=== PATIENT | male | born 1990 | race Caucasian/White ===

== ENCOUNTER 2025-04-09 11:36 | Inpatient (IN) | payer SELFPAY ==
[2025-04-09] MEDS ORDERED: DIAZEPAM 5 MG TABLET ONE (12:04)
--- NOTE | 2025-04-09 12:17 | RAD REPORT ---
EXAM: XR Abdomen Single View HISTORY: HS MAIN Foreign Body In Rectum - Bottle Bed Name: 20 COMPARISON: None FINDINGS: Single view of the abdomen shows a nonspecific, nonobstructive bowel gas pattern. Moderate stool burden along the ascending colon. No suspicious calcifications are seen. Tubular lucency in the pelvis, could represent a foreign body. The bones are unremarkable. IMPRESSION: Tubular lucency in the pelvis, could represent an air-filled for the body. Moderate stool burden of the ascending colon.
[2025-04-09 12:39] LABS: Absolute Lymphocytes (CBC) 2.4 K/uL (0.7-4.9); Hematocrit 43.0 % (39.6-49.0); Hemoglobin 14.5 g/dL (13.6-17.9); MCH 30.5 pg (27.0-35.0); MCHC 33.8 g/dL (32.0-36.0); MCV 90.1 fL (80-100); MPV 8.1 fL (7.6-11.3); Nucleated RBC Absolute Count 0.0 (0-0); Nucleated Red Blood Cells % 0.0 % (0-0); RBC Red Blood Cell Count 4.77 M/uL (4.33-5.43); White Blood Count 8.30 thou/uL (4.3-10.9)
[2025-04-09 12:43] LABS: PT Prothrombin Time 12.1 SECONDS (10-13.0); Protime INR 1.07
[2025-04-09 12:54] LABS: ALT/SGPT 36 U/L (16-61); Albumin 4.0 g/dL (3.4-5.0); Albumin/Globulin Ratio 1.5 (1.1-1.8); Alkaline Phosphatase 49 U/L (45-117); Anion Gap 10.6 mEq/L (5.0-15.0); BUN Blood Urea Nitrogen 11 mg/dL (7-18); Globulin 2.7 g/dL (2.3-3.5); Glucose Level 114 mg/dL (74-106); Potassium 3.6 mEq/L (3.5-5.1)
[2025-04-09 13:03] LABS: AST/SGOT < 10 U/L (15-37)
--- NOTE | 2025-04-09 13:08 | ER ---
Nurse's Notes [facility] Name: Heriberto Figueredo Age: 35 yrs Sex: Male : 1990 Arrival Date: 04/09/2025 Time: 11:36 Bed 20 Private MD: Diagnosis: Foreign body in anus and rectum Presentation: 04/09 11:40 Chief complaint: Patient states: I have small bottle up my ass, I tried to poop it out jb4 and it did not come out. Coronavirus screen: At this time, the client does not indicate any symptoms associated with coronavirus-19. Ebola Screen: No symptoms or risks identified at this time. Risk Assessment: Do you want to hurt yourself or someone else? Patient reports no desire to harm self or others. Onset of symptoms was April 09, 2025. Transition of care: patient was not received from another setting of care. 11:40 Method Of Arrival: Ambulatory jb4 11:40 Method Of Arrival: Ambulatory jb4 11:40 Acuity: RERE 3 jb4 11:49 Initial Sepsis Screen: Does the patient meet any 2 criteria? No. Patient's initial jb4 sepsis screen is negative. Does the patient have a suspected source of infection? No. Patient's initial sepsis screen is negative. Historical: - Allergies: 11:41 No Known Allergies; jb4 - PMHx: 11:41 Schizophrenia; jb4 - PSHx: 11:41 Appendectomy; jb4 - Immunization history:: Adult Immunizations not up to date. - Infectious Disease History:: Denies. - Social history:: Smoking status: Patient denies any tobacco usage or history of. Screenin:44 [facility] ED Fall Risk Assessment (Adult) History of falling in the last 3 months, jp5 including since admission No falls in past 3 months (0 pts) Confusion or Disorientation No (0 pts) Intoxicated or Sedated No (0 pts) Impaired Gait No (0 pts) Mobility Assist Device Used No (0 pt) Altered Elimination No (0 pt) Score/Fall Risk Level 0 - 2 = Low Risk Oriented to surroundings, Maintained a safe environment, Educated pt \T\ family on fall prevention, incl call for assistance when getting out of bed, Assessed \T\ reinforced patient's understanding of fall precautions, Provided non-skid footwear, Hourly rounding (assess needs \T\ fall precautionary measures) done, Used ambulatory aids as needed (educated on \T\ assisted with), Used gait belt as appropriate. Abuse screen: Denies threats or abuse. Denies injuries from another. Nutritional screening: No deficits noted. Tuberculosis screening: No symptoms or risk factors identified. Assessment: 11:44 General: Appears in no apparent distress. Behavior is calm, cooperative. Pain: Denies 5 pain. GI: pt states he has a body of lotion stuck in his rectum. 12:45 Reassessment: Patient appears in no apparent distress at this time. Patient and/or 5 family updated on plan of care and expected duration. Pain level reassessed. Patient is alert, oriented x 3, equal unlabored respirations, skin warm/dry/pink. 13:45 Reassessment: Patient appears in no apparent distress at this time. No changes from jp5 previously documented assessment. Patient and/or family updated on plan of care and expected duration. Pain level reassessed. Patient is alert, oriented x 3, equal unlabored respirations, skin warm/dry/pink. Vital Signs: 11:49 BP 130 / 96; Pulse 86; Resp 16; Temp 96.9(TE); Pulse Ox 99% on R/A; Weight 92.99 kg jb4 (R); Height 5 ft. 11 in. (R); 13:00 BP 117 / 81; Pulse 70; Resp 16; Temp 97.4; Pulse Ox 97% ; Pain 2/10; pm7 14:00 BP 116 / 75; Pulse 70; Resp 18; Temp 97(O); Pulse Ox 97% on R/A; Pain 0/10; jp5 11:49 Body Mass Index 28.59 (92.99 kg, 180.34 cm) jb4 13:00 Pain Scale: Adult pm7 14:00 Pain Scale: Adult jp5 ED Course: 11:39 Patient arrived in ED. ts1 11:39 [facility] dr5 11:39 Brian Peters MD is Attending Physician. dr5 11:41 Triage completed. jb4 11:41 Arm band placed on right wrist. jb4 11:44 Jena Mason, RN is Primary Nurse. jp5 11:44 No provider procedures requiring assistance completed. jp5 11:45 Patient has correct armband on for positive identification. Placed in gown. Bed in low jp5 position. Call light in reach. Side rails up X 1. Provided Education on: call light use. 12:09 XRAY Abdomen 1 View In Process Unspecified. EDMS 12:10 Assisted provider with: ED provider attempted to remove foreign body from pt's rectum, jp5 unable to do so. Pt tolerated well. 12:33 CT Abd/Pelvis - Without Contrast In Process Unspecified. EDMS 12:41 Inserted saline lock: 20 gauge in right hand, using aseptic technique. Blood collected. pm7 Flushed with 10 mL NS. 13:06 Bennie Bryan MD is Hospitalizing Provider. dr5 14:26 Report given to SBAR and yellow sheet faxed and tubed to 2nd floor. CHAGO Vargas confirmed jp5 received. Administered Medications: 12:05 Drug: Diazepam PO 5 mg PO once Route: PO; jp5 Medication: 11:44 VIS not applicable for this client. jp5 Outcome: 13:07 Decision to Hospitalize by Provider. dr5 15:00 Admitted to Med/surg accompanied by [facility], room 207, with chart, jp5 15:00 Condition: stable 15:00 Instructed on the need for admit, Demonstrated understanding of instructions, 15:01 Patient left the ED. jp5 Signatures: Dispatcher [employer] EDMS Harlan Alejandra, RN RN jb4 Marylu Bedoya PAS PAS ts1 Jena Mason RN RN jp5 Devan Souza, APPRENTICE EMBALMER-C APPRENTICE EMBALMER-Cdr5 Ting Ellis pm7 Corrections: (The following items were deleted from the chart) 14:23 14:00 BP 116 / 75; Pulse 70bpm; Resp 18bpm; Pulse Ox 97% RA; Pain 0/10, Adult; jp5 jp5
--- NOTE | 2025-04-09 13:08 | EDPHYS ---
Physician Documentation [facility] Name: Heriberto Figueredo Age: 35 yrs Sex: Male : 1990 Arrival Date: 04/09/2025 Time: 11:36 Bed 20 Private MD: ED Physician Brian Peters HPI: 04/09 11:52 This 35 yrs old Male presents to ER via Ambulatory with complaints of Foreign dr5 Body. 11:52 The patient or guardian reports the patient has a suspected foreign body, of the dr5 rectum. The reported likely foreign body is Plastic Bottle. Onset: The symptoms/episode began/occurred yesterday. Patient is a 35 year old male with hx of schizophrenia coming in with foreign body that's been going on since last night. Patient reports he uses bottles for rectal pleasure and used a plastic bottle last night he was unable to remove from his rectum. Patient denies abdominal pain, nausea, vomiting or diarrhea. Patient states that he is able to feel it with his fingers but unable to remove it.. Historical: - Allergies: 11:41 No Known Allergies; jb4 - PMHx: 11:41 Schizophrenia; jb4 - PSHx: 11:41 Appendectomy; jb4 - Immunization history:: Adult Immunizations not up to date. - Infectious Disease History:: Denies. - Social history:: Smoking status: Patient denies any tobacco usage or history of. ROS: 11:52 Constitutional: as per hpi dr5 Exam: 11:52 Constitutional: This is a well developed, well nourished patient who is awake, alert, dr5 and in no acute distress. Head/Face: Normocephalic, atraumatic. Eyes: Pupils equal round and reactive to light, extra-ocular motions intact. Lids and lashes normal. Conjunctiva and sclera are non-icteric and not injected. Cornea within normal limits. Periorbital areas with no swelling, redness, or edema. ENT: Nares patent. No nasal discharge, no septal abnormalities noted. Tympanic membranes are normal and external auditory canals are clear. Oropharynx with no redness, swelling, or masses, exudates, or evidence of obstruction, uvula midline. Mucous membranes moist. Chest/axilla: Normal chest wall appearance and motion. Nontender with no deformity. No lesions are appreciated. Cardiovascular: Regular rate and rhythm with a normal S1 and S2. Normal PMI, no JVD. No pulse deficits. Respiratory: Lungs have equal breath sounds bilaterally, clear to auscultation. No rales, rhonchi or wheezes noted. No increased work of breathing, no retractions or nasal flaring. Abdomen/GI: Soft, non-tender, non-distended Back: No spinal tenderness. No costovertebral tenderness. Full range of motion. Skin: Warm, dry with normal turgor. Normal color with no rashes, no lesions, and no evidence of cellulitis. MS/ Extremity: Pulses equal, no cyanosis. Neurovascular intact. Full, normal range of motion. Neuro: Awake and alert, GCS 15, oriented to person, place, time, and situation. Cranial nerves II-XII grossly intact. Motor strength 5/5 in all extremities. Sensory grossly intact. Cerebellar exam normal. Normal gait. 12:22 : Rectal exam: is normal, Rectal tone: normal, Perineal sensation Normal CHAGO Mason. dr5 Unable to feel foreign body during rectal exam., Vital Signs: 11:49 BP 130 / 96; Pulse 86; Resp 16; Temp 96.9(TE); Pulse Ox 99% on R/A; Weight 92.99 kg jb4 (R); Height 5 ft. 11 in. (R); 13:00 BP 117 / 81; Pulse 70; Resp 16; Temp 97.4; Pulse Ox 97% ; Pain 2/10; pm7 14:00 BP 116 / 75; Pulse 70; Resp 18; Temp 97(O); Pulse Ox 97% on R/A; Pain 0/10; jp5 11:49 Body Mass Index 28.59 (92.99 kg, 180.34 cm) jb4 13:00 Pain Scale: Adult pm7 14:00 Pain Scale: Adult jp5 MDM: 11:39 Medical Screening Exam initiated dr5 14:38 Data reviewed: vital signs, nurses notes, lab test result(s), CBC, white blood cell dr5 count, hemoglobin, hematocrit, platelets, electrolytes, sodium, potassium, chloride, serum bicarbonate, BUN, creatinine, serum glucose, PT/INR, EKG, radiologic studies, CT scan, plain films. Consideration of Admission/Observation Patient was admitted/placed on observation. Management of patient was discussed with the following: Hospitalist: Dr. Bryan. Electric Stop Installer: Dr. Cash - MYLESO, Abx, and admit for surgery tomorrow. I considered the following discharge prescriptions or medication management in the emergency department I discussed and recommended Over The Counter medications, Medications were administered in the Emergency Department. See MAR. Independent interpretation of the following test(s) in the Emergency Department X-Ray: My interpretation is Foreign body noted in rectum. CT Scan: My interpretation is Independent interpretation CAT scan reveals bottle like image in lower intestine. Care significantly affected by the following chronic conditions: Schizophrenia. Care significantly affected by the following Social Determinants of Health: Poor access to healthcare and/or lack of insurance, Poor access to transportation, Problems related to employment. Counseling: I had a detailed discussion with the patient and/or guardian regarding the historical points, exam findings, and any diagnostic results supporting the discharge/admit diagnosis, the presence of at least one elevated blood pressure reading (>120/80) during this emergency department visit, lab results, radiology results, the need for further work-up and treatment in the hospital. Special discussion: Based on the patient's history, exam and DX evaluation, there is no indication for emergent intervention or inpatient TX. It is understood by the patient/guardian that if the SXs persist or worsen they need to return immediately for re-evaluation. ED course: Dr. Cash is consulted and will do surgery by morning. Patient is aware of plan and is agreeable to plan.. 04/09 12:18 Order name: CBC with Diff; Complete Time: 12:44 04/09 12:18 Order name: CMP; Complete Time: 13:05 04/09 12:18 Order name: Type And Screen; Complete Time: 13:53 dr5 04/09 12:18 Order name: PT-INR; Complete Time: 12:44 04/09 13:43 Order name: ABO/RH no charge; Complete Time: 13:53 EDDC 04/09 13:49 Order name: Basic Metabolic Panel EDDC 04/09 13:49 Order name: Basic Metabolic Panel EDDC 04/09 13:49 Order name: CBC with Automated Diff EDMS 04/09 13:49 Order name: CBC with Automated Diff EDDC 04/09 13:49 Order name: Protime (+INR) EDDC 04/09 13:49 Order name: Protime (+INR) EDDC 04/09 11:49 Order name: XRAY Abdomen 1 View; Complete Time: 12:18 dr5 04/09 12:18 Order name: CT Abd/Pelvis - Without Contrast; Complete Time: 13:31 dr5 04/09 13:45 Order name: CONS Physician Consult EDDC 04/09 13:54 Order name: EKG; Complete Time: 13:54 dr5 04/09 12:34 Order name: Labs - recollect needed: recollect T\T\S / not labeled correctly; Complete eb Time: 12:52 04/09 13:54 Order name: EKG - Nurse/Tech; Complete Time: 14:43 dr5 EC:02 Rate is 66 beats/min. Rhythm is regular. QRS [place] is Normal. [place] interval is normal at dr5 154 msec. QRS interval is normal at 94 msec. QT interval is normal at 418 msec. Clinical impression: Normal ECG and No evidence of ischemia. Administered Medications: 12:05 Drug: Diazepam PO 5 mg PO once Route: PO; jp5 Disposition Summary: 04/09/25 13:07 Hospitalization Ordered Notes: Hospitalization Status: Inpatient Admission dr5 Provider: Bennie Bryan dr5 Location: Telemetry/MedSurg (Inpatient) dr5 Condition: Stable dr5 Problem: new dr5 Symptoms: have worsened dr5 Bed/Room Type: Standard dr5 Room Assignment: 207(04/09/25 13:59) ll1 Diagnosis - Foreign body in anus and rectum dr5 Forms: - Medication Reconciliation Form dr5 - SBAR form dr5 - Leadership Thank You Letter dr5 Signatures: Dispatcher [employer] EDMS Harlan Alejandra RN RN jb4 Beata Mar Lynsay RN RN ll1 Jena Mason RN RN jp5 Devan Souza, EJ-C [employer] CLEANER HAND-Cdr5 Corrections: (The following items were deleted from the chart) 11:49 11:49 Abdomen 1 View+RAD.RAD.BRZ ordered. EDDC EDDC 13:59 13:07 dr5 ll1
--- NOTE | 2025-04-09 13:25 | RAD REPORT ---
EXAMINATION: CT Abdomen Pelvis Wo Contrast CLINICAL INDICATION: Male, 35 years old. Foreign Bottle - Rectal TECHNIQUE: CT abdomen and pelvis was performed, without IV contrast, as per department protocol. Axia l, sagittal and coronal reconstructions were obtained. One or more of the following dose reduction techniques were used: Automated exposure control, adjustment of the mA and kV according to the patien t size, and iterative reconstruction. Unless otherwise specified, incidental findings do not require dedicated imaging follow-up. COMPARISON: No prior exam. FINDINGS: The lack of intravenous contrast limits the sensitivity of this exam for evaluation of solid visceral organs, vascular structures, and retroperitoneum. LOWER CHEST: The visualized lung bases are clear. LIVER: Normal in size and contour. No focal lesion. BILIARY SYSTEM: No suspicious abnormalities. SPLEEN: Normal size. No focal lesion. PANCREAS: No mass, ductal dilation, or hilaria-pancreatic fluid. ADRENALS: Normal; no mass. KIDNEYS AND URETERS: Normal size and contour. No hydronephrosis. URINARY BLADDER: Normal contour. GASTROINTESTINAL TRACT: Tubular lucent structure compatible with reported bottle present within the l umen of the upper rectum and distal sigmoid. The nozzle is lodged against the posterior rectal wall, with mild wall thickening and adjacent presacral fat stranding in the region. No evidence of donna wel obstruction, significant free fluid, free air or abscess. APPENDIX: Appendix not visualized, but no inflammatory changes in region of appendix. LYMPH NODES: No lymphadenopathy. MUSCULOSKELETAL: No acute or suspicious osseous abnormality. ADDITIONAL FINDINGS: None. IMPRESSION: Tubular lucent structure compatible with reported bottle present within the lumen of the upper rectum and distal sigmoid. Focal posterior rectal wall thickening and mild presacral fat stranding at the level of the nozzle. No evidence of free air or free fluid.
[2025-04-09] MEDS ORDERED: ACETAMINOPHEN 325 MG TABLET PO PRN (13:43)
[2025-04-09] MEDS: NA CHLORIDE 0.9% 1,000 ML IV SCH (14:00)
--- NOTE | 2025-04-09 14:01 | P.HP ---
Certification for Inpatient Patient admitted to: Inpatient With expected LOS: >2 Midnights Patient will require the following post-hospital care: None Practitioner: I am a practitioner with admitting privileges, knowledge of patient current condition, hospital course, and medical plan of care. Services: Services provided to patient in accordance with Admission requirements found in Title 42 Section 412.3 of the Code of Federal Regulations Patient History Date of Service: 04/09/25 Primary Care Provider: None Reason for admission: Rectal foreign body History of Present Illness: 35-year-old male with prior medical history of unmedicated schizophrenia presents to the ED with complaints of having "a bottle in my ass" since 1 night prior. He reports placing the bottle there himself and does this frequently and he has always come out before. Denies bleeding from the site, endorses pain with movement that is improved with laying down on his side. Endorses attempting bowel movement to remove the object at home unsuccessfully. ER course Patient arrived to ED via personal vehicle. Upon arrival an x-ray of the abdomen was taken confirming foreign body. ED provider attempted removal of the foreign body from the patient's rectum unsuccessfully. Subsequently, CT of the abdomen/pelvis with out contrast was completed. Patient was given diazepam p.o. 5 mg once for comfort. Vital signs jesus none en and within normal limits on room air. Allergies No Known Allergies Allergy (Unverified 04/09/25 13:56) Home medications list reviewed: Yes Home Medications: NK [No Home Meds] 04/09/25 - Past Medical/Surgical History Has patient received pneumonia vaccine in the past: No Diabetic: No -: Schizophrenia -: Appendectomy - Family History Family History: Reviewed- Non-Contributory - Social History Smoking Status: Never smoker Alcohol use: No CD- Drugs: No Caffeine use: Yes Place of Residence: Home Review of Systems 10-point ROS is otherwise unremarkable Physical Examination - Physical Exam General: Alert, In no apparent distress, Oriented x3, Cooperative HEENT: Atraumatic, Normocephalic, Mucous membr. moist/pink Neck: Supple, JVD not distended Respiratory: Clear to auscultation bilaterally, Normal air movement Cardiovascular: No edema, Normal pulses, Regular rate/rhythm, Normal S1 S2 Capillary refill: Brisk Gastrointestinal: Normal bowel sounds, Soft and benign, Non-distended Musculoskeletal: No clubbing, No swelling, No contractures, No erythema Integumentary: No rashes, No breakdown, No significant lesion, No tenderness/swelling Neurological: Normal speech, Normal strength at 5/5 x4 extr, Normal tone, Sensation intact, Cranial nerves 3-12 intact, Normal affect External genitalia: Deferred Rectal: Tenderness - Studies Laboratory Data (last 24 hrs) 04/09/25 04/09/25 04/09/25 12:24 12:24 12:24 WBC 8.30 Hgb 14.5 Hct 43.0 Plt Count 273 PT 12.1 INR 1.07 Sodium 142 Potassium 3.6 BUN 11 Creatinine 0.99 Glucose 114 H Total Bilirubin 0.4 AST < 10 L ALT 36 Alkaline Phosphatase 49 Assessment and Plan - Plan Assessment: 35-year-old male with prior medical history of unmedicated schizophrenia presents to the ED with complaints of having "a bottle in my ass" since 1 night prior. He reports placing the bottle there himself and does this frequently and he has always come out before. Plan: Rectal foreign body Rectal pain Self-inflicted Abdominal x-ray 04/09 showed moderate stool burden and tubular lucency CTAP 04/09 showing similar tubular lucent structure without evidence of free air or fluid Surgery consulted, anticipate OR in the a.m. with Dr. Cash N.p.o. Anticoagulation held pending procedure Tylenol 650 mg every 4 hours as needed for mild pain Morphine 4 mg IV every 4 hours as needed for moderate to severe pain Schizophrenia Endorses being prescribed medications, but not taking them Mom has recommended medication list and will bring Disposition: DVT prophylaxis: Held pending surgery GI prophylaxis: Not indicated. Diet: N.p.o. pending anticipated OR 04/[address] Cash Code Status: DNR - Advance Directives Does patient have a Living Will: Yes Does patient have a Durable POA for Healthcare: No - Code Status/Comfort Care Code Status Assessed: Yes (DNR) Critical Care: No Time Spent Managing Pts Care (In Minutes): 49
[2025-04-09] MEDS: SUGAMMADEX SODIUM 200 MG/2 ML VIAL IV ONE (15:28)
[2025-04-09] MEDS: SUCCINYLCHOLINE 20 MG/ML (10 ML) IV ONE (15:29)
[2025-04-09 15:32] VITALS: BMI 28.5
[2025-04-09] MEDS ORDERED: MORPHINE 4 MG/ML SYR IV PRN (15:39)
[2025-04-09] MEDS ORDERED: LIDOCAINE 2% MPF 5 ML VIAL ONE (15:41)
[2025-04-09] MEDS ORDERED: ROCURONIUM 50 MG/5 ML VIAL IV ONE (15:41)
[2025-04-09] MEDS ORDERED: FENTANYL CITR 100 MCG/2 ML ONE (15:42)
[2025-04-09] MEDS: CIPROFLOXACIN 400mg IV 400 MG/200 ML BAG IV ONE (16:09)
[2025-04-09] MEDS: Ringers Lactate 1,000 ML IV ONE (16:12)
--- NOTE | 2025-04-09 17:49 | P.BOP ---
Preoperative diagnosis: retained foreign body Postoperative diagnosis: same plus colitis Primary procedure: EUA, flexible sigmoidoscopy, removal of plastic bottle foreign body Estimated blood loss: 0 Specimen: bottle Findings: bottle rectosigmoid area, colitis Anesthesia: General Complications: None Transferred to: Recovery Room Condition: Good
--- NOTE | 2025-04-09 19:59 | CON ---
Date of Consultation: 04/09/2025 Reason For Service: Retained foreign body in the rectum. History Of Present Illness: This is a case of a 35-year-old patient with a medical history other can n schizophrenia, comes to the ER complaining of "I put a bottle on my ass." Happened last night. He had done it before, but it comes out. He is saying the bottle has no cap and is a plastic. He was trying to remove that himself, but could not, ER can even feel it at physical exam on the rectal exam ination and the x-ray shows deep into the rectosigmoid area. He had this morning some for diet at 7 o'clock in the morning. He is complaining of abdominal pain and that is why he came to [facility] ER since he could not do anything else. Medical History: Schizophrenia. Past Surgical History: Surgeries include appendectomy. Allergies: NONE. Medications: None. Social History: He does not smoke. He does not drink alcohol. Review of Systems: As per the HPI. No dysuria, hematuria, hematochezia, melena. No fever. No shortness of breath. No chest pain. Physical Examination: General: The patient is awake, alert, oriented x3. Cooperative. HEENT: Pupils are equal and reactive. Anicteric. Neck: Supple. Chest: Clear. Abdomen: Soft and depressible. There is lower abdominal mild pain without tenderness and no rebound . Rectal: Deferred. He is already sore from his attempt in ER, but they cannot be reached. Extremities: Good capillary refill. Laboratory Data: Blood work shows WBC count of 8.3, hemoglobin of 14.5, and platelets 273. Chloride is 110. Abdomen CT interpreted by within the lumen of the upper rectum and sigmoid a jarett, then also dislodged against the posterior rectal wall, male wall thickening, adjacent perisacral fat stranding in the region. Assessment: This is a 35-year-old patient with a retained foreign body deep into the sigmoid to rect al area, cannot even be reached through the rectal exam. After multiple attempts in ER by the ER nelson britt and the patient itself, so they called the surgeon for also trying to remove this under anesth esia. Explained to him the benefits, alternatives, and risks of an examination under anesthesia, ano scopy, proctoscopy, possible removal of foreign body, possible exploratory laparotomy with midline in cision, possible bowel resection, possible ostomy with benefits, alternatives, and risks including, b ut not limited to infection, bleeding, damage to adjacent structures anesthesia complication, bowel p erforation, abscess, [place], and even . He also understands this may not relieve symptoms. He migh t need more than one surgical intervention given that the plan is the reverse ostomy if present in e next few months, still it is a possibility that might never happen, so he understands that and sign ed a consent. The OR was emergently called. IKER/NEVAEH Voice ID: [id number] Report ID: [id number]
[2025-04-09] MEDS: Ciprofloxacin 200mg IV 200 MG/100 ML IV.SOLN. IV SCH (20:05)
[2025-04-09] MEDS: HYDROCODONE/APAP 5/325 MG TAB PO PRN (20:06)
--- NOTE | 2025-04-09 20:08 | OP ---
Date of Procedure: 04/09/2025 Surgeon: Orville Cash MD Preoperative Diagnoses: Retained foreign body, colitis, abdominal pain. Postoperative Diagnoses: Retained foreign body, colitis, abdominal pain. Procedures: Examination under anesthesia, flexible sigmoidoscopy, removal of plastic bottle foreign body. Estimated Blood Loss: None. Specimens: Plastic bottle. Findings: Bottle in the rectosigmoid area, contact colitis. Anesthesia: General. Complications: None. Indications: This is the case of a 35-year-old patient who last night put a plastic bottle in his re ctum. He lost control over it. He could not retrieve that. Today this afternoon, he decided to com e to the ER because it was not coming down and it was giving him pain and discomfort. He was examine d and fully explained the benefits and risks of examination under anesthesia, possible anoscopy, proc toscopy, possible colonoscopy, possible laparotomy, possible bowel resection, possible ostomy with be nefits, alternatives, and risks including, but not limited to infection, bleeding, damage to adjacent structures, anesthesia complication, recurrence, bowel perforation, colitis, [place], and even . He also understands this may not relieve symptoms. He might need more than one surgical intervention. He signed a consent. Description Of Procedure: The patient was brought to the operating room, placed in supine position. Anesthesia was induced without complication. The abdomen and genitalia were prepped and draped in a sterile fashion. The patient was placed in lithotomy position. A time-out was called. We have thi s planned. We have the anoscopies. We have also a major set in case we have to do laparotomy, but w e tried first the colonoscopy, flexible sigmoidoscopy. The colonoscope we introduced after rectal ex amination was done in the area of the rectum and at the rectosigmoid junction, we were able to identi fy a foreign object with the shape of a plastic bottle. There was no cap the cap was not there pre or prior to surgery that allowed me to put a loop around the neck of that loop a nd then with the help of the scope pulling carefully we were able to retrieve the foreign body. Afte r that, we introduced the camera, once again checked the area. It shows some contact colitis, but no perforation and no ischemia. We went proximal to the area where the foreign body was. At that mome nt, I proceeded to scope. Sponge count and instrument counts were correct. The patient tolerated th e procedure well. Bottle was sent for specimen, and the patient was sent to Recovery in stable condi tion. IKER/NEVAEH Voice ID: [id number] Report ID: [id number]
[2025-04-09 21:20] VITALS: O2SAT 97
[2025-04-10 05:33] LABS: Absolute Lymphocytes (CBC) 3.7 K/uL (0.7-4.9); Hematocrit 38.9 % (39.6-49.0); Hemoglobin 13.1 g/dL (13.6-17.9); MCH 30.3 pg (27.0-35.0); MCHC 33.6 g/dL (32.0-36.0); MCV 90.1 fL (80-100); MPV 7.9 fL (7.6-11.3); Nucleated RBC Absolute Count 0.0 (0-0); Nucleated Red Blood Cells % 0.0 % (0-0); RBC Red Blood Cell Count 4.32 M/uL (4.33-5.43); White Blood Count 8.40 thou/uL (4.3-10.9)
[2025-04-10 05:34] LABS: PT Prothrombin Time 12.6 SECONDS (10-13.0); Protime INR 1.12
[2025-04-10 05:40] LABS: Anion Gap 8.0 mEq/L (5.0-15.0); BUN Blood Urea Nitrogen 7.0 mg/dL (7-18); Glucose Level 97.0 mg/dL (74-106); Potassium 4.0 mEq/L (3.5-5.1)
[2025-04-10 08:04] VITALS: BP 91/52; TEMP 98
--- NOTE | 2025-04-10 08:36 | P.DS ---
Admission Date: 04/09/25 Discharge Date: 04/10/25 Primary Care Provider: None Disposition: ROUTINE DISCHARGE Discharge Condition: GOOD Reason for Admission: Rectal foreign body Consultations: SurgeryDr. Cash Procedures: Rectal foreign body removal in OR 04/09/2025 Brief History of Present Illness: 35-year-old male with prior medical history of unmedicated schizophrenia presents to the ED with complaints of having "a bottle in my ass" since 1 night prior. He reports placing the bottle there himself and does this frequently and he has always come out before. Denies bleeding from the site, endorses pain with movement that is improved with laying down on his side. Endorses attempting bowel movement to remove the object at home unsuccessfully. ER course Patient arrived to ED via personal vehicle. Upon arrival an x-ray of the abdomen was taken confirming foreign body. ED provider attempted removal of the foreign body from the patient's rectum unsuccessfully. Subsequently, CT of the abdomen/pelvis with out contrast was completed. Patient was given diazepam p.o. 5 mg once for comfort. Vital signs jesus none en and within normal limits on room air. Hospital Course: Patient was admitted for removal of rectal foreign body and subsequent rectal pain management after introducing a foreign body to his rectum intentionally. Patient initially underwent abdominal x-ray which showed moderate stool burden and tubular lucency. Follow-up CTAP was completed on 04/09 confirming tubular lucency in size without evidence of free air or free fluid in the surrounding area. Surgery was consulted due to failed attempts to remove the foreign object in the ED by the ED providers. Dr. Cash 6 patient to the OR for surgical removal without complication. Mild colitis was noticed post removal to the surrounding area, but no perforation or infectious concerns were noted in the operative report. Patient was maintained on Tylenol and [place] for pain relief. On day of discharge patient denies pain. Advised to take [id number] Tylenol or ibuprofen for pain and inflammation control. Also recommended taking stool softener like MiraLAX to avoid aggravating the area while it is healing. Additionally, reinforced importance of taking medication as prescribed for schizophrenia as patient states he does not like taking his medications. Vital Signs/Physical Exam: Temp Pulse Resp BP Pulse Ox 98.0 F 68 16 91/52 L 95 04/10/25 08:00 04/10/25 08:00 04/10/25 08:00 04/10/25 08:00 04/10/25 08:00 General: Alert, Oriented x3, Cooperative HEENT: Atraumatic, Normocephalic, Mucous membr. moist/pink Neck: Supple, JVD not distended, No Thyromegaly Respiratory: Clear to auscultation bilaterally, Normal air movement Cardiovascular: No edema, Normal pulses, Regular rate/rhythm, Normal S1 S2 Capillary refill: Brisk Gastrointestinal: Normal bowel sounds, Soft and benign, Non-distended Musculoskeletal: No clubbing, No swelling, No contractures Integumentary: No rashes, No breakdown, No significant lesion Neurological: Normal speech, Normal strength at 5/5 x4 extr, Normal tone, Sensation intact External genitalia: Deferred Rectal: Deferred Laboratory Data at Discharge: WBC 8.40 thou/uL (4.3-10.9) 04/10/25 05:09 Hgb 13.1 g/dL (13.6-17.9) L D 04/10/25 05:09 Hct 38.9 % (39.6-49.0) L 04/10/25 05:09 Plt Count 221 thou/uL (152-406) 04/10/25 05:09 PT 12.6 SECONDS (10-13.0) 04/10/25 05:09 INR 1.12 04/10/25 05:09 Sodium 140 mEq/L (136-145) 04/10/25 05:09 Potassium 4.0 mEq/L (3.5-5.1) 04/10/25 05:09 BUN 7 mg/dL (7-18) 04/10/25 05:09 Creatinine 0.94 mg/dL (0.70-1.30) 04/10/25 05:09 Glucose 97 mg/dL (74-106) 04/10/25 05:09 Total Bilirubin 0.4 mg/dL (0.2-1.0) 04/09/25 12:24 AST < 10 U/L (15-37) L 04/09/25 12:24 ALT 36 U/L (16-61) 04/09/25 12:24 Alkaline Phosphatase 49 U/L (45-117) 04/09/25 12:24 Home Medications: Benztropine Mesylate [Cogentin*] 1 mg PO BID 04/09/25 Lumateperone Tosylate [Caplyta] 21 mg PO DAILY 04/09/25 OXcarbazepine [Trileptal] 300 mg PO BID 04/09/25 Acetaminophen [Tylenol*] 650 mg PO Q4HP PRN tab 04/10/25 Physician Discharge Instructions: PROBLEM: Rectal foreign body removed GOAL: Clear understanding of disease process INSTRUCTIONS: Follow-up with your PCP within the next 2 to 3 days. Report any concerns of fever, chills, discharge from the anus, bleeding from the anus to your PCP immediately. Follow-up with your psychiatrist as scheduled. You may take Tylenol or ibuprofen [id number] for pain relief. I also r ecommend taking a stool softener like MiraLAX to help reduce irritation to the rectum while it is healing. Diet: Regular diet Activity: You may resume normal activities as tolerated. Diet: Regular Activity: Ad aamir Followup: NONE,NONE [Primary Care Provider] - Time spent managing pt's care (in minutes): 34
== END 2025-04-10 10:41 | disposition home or self-care (01) | DRG 395 ==
LOC: ER 11:36 → ERHOLD 13:42 → 2ND 14:26
PROVIDERS: ADMIT Hospitalist; ATTEND Hospitalist
PROC: 0DCP8ZZ Extirpation of Matter from Rectum, Via Natural or Artificial Opening Endoscopic (ICD-10-PCS; principal; 2025-04-09 16:00)
DX: T18.5XXA Foreign body in anus and rectum, initial encounter (principal); F20.9 Schizophrenia, unspecified; K52.9 Noninfective gastroenteritis and colitis, unspecified; K62.89 Other specified diseases of anus and rectum; Z66 Do not resuscitate; Z59.71 Insufficient health insurance coverage; Z56.0 Unemployment, unspecified; Z59.82 Transportation insecurity; Z90.49 Acquired absence of other specified parts of digestive tract
CPT/HCPCS: 36415; 74018; 74176; 80048; 80053; 85025; 85610; 86850; 86900; 86901; 88300; 93005; 94010; 99285; J0330; J0744; J2003; J2704; J3010; J7030; J7120